=== PATIENT | male | born 1990 | race Two or more races ===

== ENCOUNTER 2022-02-03 08:21 | Emergency (ER) | payer OTHER ==
[~2022-02-03] VITALS: Ht 175.3 cm; Wt 93.2 kg
[2022-02-03 08:50] VITALS: BP 156/103
[2022-02-03] MEDS ORDERED: TRAM50TA2 PO (09:01)
[2022-02-03] MEDS ORDERED: NAPR-56 PO (09:01)
== END 2022-02-03 12:19 | disposition home or self-care (01) ==
LOC: ER 08:21
DX: K08.89 Other specified disorders of teeth and supporting structures (principal); Z79.899 Other long term (current) drug therapy
CPT/HCPCS: 99283